=== PATIENT | female | born 1970 | race Caucasian/White ===

== ENCOUNTER 2017-05-27 09:13 | Emergency (ER) | payer OTHER ==
[~2017-05-27] VITALS: Ht 175.3 cm; Wt 61.7 kg
--- NOTE | ~2017-05-27 | CR211 ---
[facility] A Service of [facility] RADIOLOGY TEXT RESULTS PATIENT: ROSA ELENA NULL LOCATION: [facility] : 72 UNIT #: [id number] AGE: [address]: Ellen Avila SEX: F ORDER DR: [id number] [facility] [address] [place], [place] [address] [id number] E MR#: [id number] Acc #: [id number] NAME: ROSA ELENA NULL : 1970 SEX: F STUDY DATE/TIME: 05/27/2017 UNIT: [facility] ROOM: STUDY DESCRIPTION: CR Ribs Uni 2 View W PA Ch Rt Attending Physician: Ellen Avila P.A.-C. Ordering Physician: Ellen Avila P.A.-C. Primary Care Physician: Farzad Harris M.D. MEDICAL IMAGING REPORT This report is preliminary unless electronic signature is present EXAM Chest with right rib series, 05/27/2017, 10 o'clock hours. HISTORY 46-year-old woman complaining of right lower rib pain, upper and lower back pain for 4 days. Patient states her autistic son fell on her 4 days ago. COMPARISON Chest film, 02/13/2011. FINDINGS Upright chest film demonstrates normal cardiac, mediastinal and hilar contours. The lungs are well expanded and clear. There is no effusion or pneumothorax. AP and oblique views of the right ribs demonstrate no rib fracture. IMPRESSION 1. No acute cardiopulmonary findings. 2. No rib lesion or rib fracture. No pleural effusion or pneumothorax. Dictated by... Ani Ortega M.D. THIS IS AN ELECTRONICALLY VERIFIED REPORT Ani Ortega M.D. at 05/28/2017 8:53 AM MAIRA/jonathan TD: 05/27/2017 14:58 JOB #: [id number] [facility] A Service [facility] RADIOLOGY TEXT RESULTS PATIENT: ROSA ELENA NULL LOCATION: [facility] : 72 UNIT #: [id number] AGE: [address]: Ellen Avila SEX: F ORDER DR: MEDICAL IMAGING REPORT Page 1 of 1 COPY
--- NOTE | ~2017-05-27 | CR243 ---
[facility] A Service of [facility] & [facility] RADIOLOGY TEXT RESULTS PATIENT: ROSA ELENA NULL LOCATION: [place] : 72 UNIT #: [id number] AGE: [address]: Ellen Avila SEX: F ORDER DR: [id number] [facility] [address] [place], [place] [address] [id number] E MR#: [id number] Acc #: [id number] NAME: ROSA ELENA NULL : 1970 SEX: F STUDY DATE/TIME: 05/27/2017 10:01 UNIT: [facility] ROOM: STUDY DESCRIPTION: CR Thoracic Spine 3 Views Attending Physician: Ellen Avila P.A.-C. Ordering Physician: Ellen Avila P.A.-C. Primary Care Physician: Farzad Harris M.D. MEDICAL IMAGING REPORT This report is preliminary unless electronic signature is present EXAM Thoracic spine series 05/27/2017, 10:01 hours. HISTORY 46-year-old woman complaining of upper and lower back pain for 4 days after her autistic son fell on her. History of prior back fracture, but patient does not know the level. COMPARISON None. FINDINGS AP and lateral views of the thoracic spine and a lateral swimmers view were performed. There is a compression deformity at T5 with approximately 40% to 50% vertebral body height loss anteriorly. Mild sclerosis of the inferior endplate. This is of indeterminate age, favor old. There is mild endplate spurring, but no other fractures seen. IMPRESSION There is a compression deformity at T5 with approximately 40% to 50% vertebral body height loss anteriorly and some sclerosis of the inferior endplate. This is of indeterminate age, but favored to be old. This is not apparent on the portable chest film of 02/13/2011. No other fracture seen. Dictated by... Ani Ortega M.D. THIS IS AN ELECTRONICALLY VERIFIED REPORT Ani Ortega M.D. at 05/27/2017 2:34 PM SMM/gz TD: 05/27/2017 10:43 [facility] A Service of [facility] & [facility] RADIOLOGY TEXT RESULTS PATIENT: ROSA ELENA NULL LOCATION: [facility] : 72 UNIT #: [id number] AGE: [address]: Ellen Avila SEX: F ORDER DR: JIMMY #: [id number] MEDICAL IMAGING REPORT Page 1 of 1 COPY
--- NOTE | ~2017-05-27 | CR181 ---
[facility] A Service of [facility] RADIOLOGY TEXT RESULTS PATIENT: ROSA ELENA NULL LOCATION: [facility] : 72 UNIT #: [id number] AGE: [address]: Ellen Avila SEX: F ORDER DR: [id number] [facility] [address] [place], [place] [address] [id number] E MR#: [id number] Acc #: [id number] NAME: ROSA ELENA NULL : 1970 SEX: F STUDY DATE/TIME: 05/27/2017 UNIT: [facility] ROOM: STUDY DESCRIPTION: CR Lumbar Spine 2 or 3 Views Attending Physician: Ellen Avila P.A.-C. Ordering Physician: Ellen Avila P.A.-C. Primary Care Physician: Farzad Harris M.D. MEDICAL IMAGING REPORT This report is preliminary unless electronic signature is present EXAM Lumbar spine series 05/27/2017 1001 hours HISTORY Patient complains of low back pain and upper back pain for 4 days after her autistic son fell on her. History of prior back fracture, but patient does not know the level. COMPARISON None FINDINGS AP and lateral views of the lumbar spine and a coned lateral view of the lumbosacral junction were performed. There are 5 [id number] lumbar type vertebrae that are normally aligned. Vertebral body and disc heights are normal. There is mild facet arthropathy at the lower lumbar level. There is a small calcification at the anteroinferior endplate of L5, likely a small limbus vertebra. IMPRESSION 1. No fracture or subluxation. 2. Mild lower lumbar facet arthropathy. 3. Small limbus type vertebral change at the anteroinferior endplate of L5, felt chronic. Dictated by... Ani Ortega M.D. THIS IS AN ELECTRONICALLY VERIFIED REPORT Ani Ortega M.D. at 05/28/2017 8:53 AM [facility] A Service [facility] RADIOLOGY TEXT RESULTS PATIENT: ROSA ELENA NULL LOCATION: [facility] : 72 UNIT #: [id number] AGE: [address]: Ellen Avila SEX: F ORDER DR: Jacob TD: 05/27/2017 14:52 JOB #: [id number] MEDICAL IMAGING REPORT Page 1 of 1 COPY
[~2017-05-27 09:13] MED LIST: ALPRAZOLAM PO; AMITRYPTYLINE PO; AMOXICILLIN875 MG PO; BACTRIM DS TABL1 TA2 PO; BACTRIM DS TABL1 TAB PO; BACTROBAN15 GM TOP; CELEXA; CIPRO PO; CLINDAMYCIN PO; DOXEPIN HCL100 MG PO; DOXEPIN PO; KEFLEX; LORTAB 5/500 TA1 TA2 PO; NO MEDICATIONS; PYRIDIUM PO; SEROQUEL PO; VICODIN 5/1 TAB 5/50 PO; VICODIN 5/500 T1 TAB PO; VOLTAREN PO; ZOLOFT PO; ZOLOFT100 MG PO; [UNRECOGNIZED DRUG - REMARK]
== END 2017-05-27 10:57 | disposition home or self-care (01) ==
LOC: CFTX 09:13 → CED 09:13 → CFTX 09:52
DX: M54.5 Low back pain (principal); M54.6 Pain in thoracic spine; F32.9 Major depressive disorder, single episode, unspecified; F41.9 Anxiety disorder, unspecified; Z90.710 Acquired absence of both cervix and uterus; F17.210 Nicotine dependence, cigarettes, uncomplicated; Z88.5 Allergy status to narcotic agent; Z88.6 Allergy status to analgesic agent
CPT/HCPCS: 71101; 72072; 72100; 96372; 99283; J1885